=== PATIENT | female | born 1945 | race Caucasian/White ===

== ENCOUNTER 2022-11-23 14:57 | Emergency (ER) | payer MEDICARE ==
[2022-11-23 15:05] VITALS: TEMP 97.6
[2022-11-23] MEDS ORDERED: ONDANSETRON 4 MG/2 ML VIAL IVP STA (15:51)
[2022-11-23 16:26] LABS: Anisocytosis Slight; Basophils % (A) 0 %; Eosinophils # (A) 0.1 k/uL (0-0.7); Eosinophils % (A) 1 %; HCT 21.4 % (34.0-46.0); Lymphocytes # (A) 0.5 k/uL (1.0-4.8); Lymphocytes % (A) 8 %; MCH 30.6 pg (25.0-35.0); MCHC 32.9 g/dL (31.0-37.0); MCV 93.2 fL (80.0-100.0); Mean Platelet Volume 10.1; Monocytes # (A) 0.5 k/uL (0-1.0); Monocytes % (A) 9 %; Neutrophils # (A) 4.6 k/uL (1.3-7.7); Neutrophils % (A) 79 %; Platelet Count 151 k/uL (150-450); RDW 16.4 % (11.5-15.5); WBC 5.9 k/uL (3.8-10.6)
--- NOTE | 2022-11-23 16:37 | ED ---
General Adult HPI - General Chief complaint: Weakness Stated complaint: Weakness Time Seen by Provider: 11/23/22 15:13 Source: patient, family Mode of arrival: wheelchair Limitations: altered mental status, physical limitation - History of Present Illness Initial comments: 77-year-old female with past medical history of nonalcoholic liver cirrhosis, chronic anemia who presents to the emergency department with report of confusion, weakness and hematemesis. The patient's son is at bedside. They report that the patient just returned home from [facility] [place]. She was hospitalized there after a stay at [facility]. She came home last Thursday. Has been doing well up until today when she became confused and weak. She has recurrent hyperammonemia however she has been taking her rifaximin and lactulose without any missed doses. They deny any falls. She did have a bowel movement just prior to coming to the hospital. They deny any weight gain. No increase in abdominal girth. Last paracentesis was on November 13. They deny fevers. The patient is not complaining of any chest pain or shortness of breath. She did have an episode of vomiting bright red blood just prior to coming into the hospital. They approximate that it was around 30 mL of blood. No history of similar that they know of. GI doctor is Dr. Garcia. No other alleviating, precipitating or modifying factors - Related Data Home Medications Medication Instructions Recorded Confirmed Docusate [Colace] 100 mg PO BID 11/23/22 11/23/22 Ferrous Sulfate [Feosol] 325 mg PO DAILY 11/23/22 11/23/22 Furosemide [Lasix] 40 mg PO DAILY 11/23/22 11/23/22 Lactulose 20 gm PO TID 11/23/22 11/23/22 Melatonin 6 mg PO HS 11/23/22 11/23/22 Multivitamins, Thera [Multivitamin 1 tab PO DAILY 11/23/22 11/23/22 (formulary)] Omeprazole [PriLOSEC] 40 mg PO BID 11/23/22 11/23/22 Propranolol [Inderal] 10 mg PO TID 11/23/22 11/23/22 Rifaximin [Xifaxan] 550 mg PO BID 11/23/22 11/23/22 Sodium Bicarbonate Tab 650 mg PO BID 11/23/22 11/23/22 Spironolactone [Aldactone] 50 mg PO BID 11/23/22 11/23/22 traMADol HCL 50 mg PO Q12H 11/23/22 11/23/22 Allergies Allergy/AdvReac Type Severity Reaction Status Date / Time No Known Allergies Allergy Verified 11/23/22 15:05 Review of Systems ROS Statement: Those systems with pertinent positive or pertinent negative responses have been documented in the HPI. ROS Other: All systems not noted in ROS Statement are negative. Past Medical History Past Medical History: Hypertension, Liver Disease, Renal Disease Additional Past Medical History / Comment(s): chrosis of liver, anemia, metabolic encephalopathy, esophageal varices without bleeding History of Any Multi-Drug Resistant Organisms: None Reported Past Surgical History: No Surgical Hx Reported Past Psychological History: No Psychological Hx Reported Smoking Status: Never smoker Past Alcohol Use History: None Reported Past Drug Use History: None Reported General Exam Limitations: altered mental status, physical limitation General appearance: alert, in no apparent distress Head exam: Present: atraumatic, normocephalic, normal inspection Eye exam: Present: normal appearance, PERRL, EOMI. Absent: scleral icterus, conjunctival injection, periorbital swelling ENT exam: Present: normal exam, mucous membranes moist Respiratory exam: Present: normal lung sounds bilaterally. Absent: respiratory distress, wheezes, rales, rhonchi, stridor Cardiovascular Exam: Present: regular rate, normal rhythm, normal heart sounds. Absent: systolic murmur, diastolic murmur, rubs, gallop, clicks GI/Abdominal exam: Present: distended. Absent: guarding Extremities exam: Present: normal inspection, full ROM, normal capillary refill. Absent: tenderness, pedal edema, joint swelling, calf tenderness Neurological exam: Present: alert Psychiatric exam: Present: flat affect Skin exam: Present: warm, dry, intact, normal color. Absent: rash Course Vital Signs 11/23/22 11/23/22 11/23/22 14:58 16:13 16:30 Temperature 97.6 F Pulse Rate 74 72 70 Respiratory 18 17 17 Rate Blood Pressure 121/61 117/60 111/55 O2 Sat by Pulse 100 100 100 Oximetry 11/23/22 11/23/22 11/23/22 17:00 17:33 19:37 Temperature Pulse Rate 69 70 82 Respiratory 16 17 16 Rate Blood Pressure 100/55 107/92 107/56 O2 Sat by Pulse 100 99 99 Oximetry - Reevaluation(s) Reevaluation #1: Calling [facility] for transfer 11/23/22 17:20 Reevaluation #2: Speaking with [facility] - Dr. Garcia does accept transfer 11/23/22 18:14 Dr. Zeus VILLANUEVA doc accepts transfer 11/23/22 18:17 EKG Findings - EKG Comments: EKG Findings:: EKG demonstrates a sinus rhythm with a rate of 73. GA interval 156. QRS 85. QTC of 418. No acute processes elevations or depressions Medical Decision Making - Medical Decision Making Was pt. sent in by a medical professional or institution (, PA, TIN CAN LABORER, urgent care, hospital, or fci...) When possible be specific @ -No Did you speak to anyone other than the patient for history (EMS, parent, family, police, friend...)? What history was obtained from this source @ -Daughter Did you review nursing and triage notes (agree or disagree)? Why? @ -I reviewed and agree with nursing and triage notes Were old charts reviewed (outside hosp., previous admission, EMS record, old EKG, old radiological studies, urgent care reports/EKG's, fci records)? Report findings @ -No old charts were reviewed Differential Diagnosis (chest pain, altered mental status, abdominal pain women, abdominal pain men, vaginal bleeding, weakness, fever, dyspnea, syncope, headache, dizziness, GI bleed, back pain, seizure, CVA, palpatations, mental he alth, musculoskeletal)? @ -Differential GI Bleed: Esophageal varices, aortoenteric fistula, Yvette-Ríos, gastritis, peptic ulcer disease, diverticulosis, inflammatory bowel disease, hemorrhoids, fissure, colitis, malignancy, Meckels diverticulum, this is not meant to be an all- inclusive list. EKG interpreted by me (3pts min.). @ -As above X-rays interpreted by me (1pt min.). @ -None done CT interpreted by me (1pt min.). @ -None done U/S interpreted by me (1pt. min.). @ -None done What testing was considered but not performed or refused? (CT, X-rays, U/S, labs)? Why? @ -Abdominal CT was considered however the patient does not have any pain What meds were considered but not given or refused? Why? @ -None Did you discuss the management of the patient with other professionals (professionals i.e. , PA, TIN CAN LABORER, lab, RT, psych nurse, pediatric social worker, help desk coordinator, teacher, motorcycle police officer, case specialist)? Give summary @ -Yes - Dr. Garcia at [facility] Was smoking cessation discussed for >3mins.? @ -No Was critical care preformed (if so, how long)? @ -45 minutes Were there social determinants of health that impacted care today? How? (Homelessness, low income, unemployed, alcoholism, drug addiction, transportation, low edu. Level, literacy, decrease access to med. care, long-term, rehab)? @ -No Was there de-escalation of care discussed even if they declined (Discuss DNR or withdrawal of care, Hospice)? DNR status @ -No What co-morbidities impacted this encounter? (DM, HTN, Smoking, COPD, CAD, Cancer, CVA, ARF, Chemo, Hep., AIDS, mental health diagnosis, sleep apnea, morbid obesity)? @ -VARGAS, Esophageal varices, ascites, anemia Was patient admitted / discharged? Hospital course, mention meds given and route, prescriptions, significant lab abnormalities, going to OR and other pertinent info. @ -Upon arrival the patient was placed in room 10. A thorough history and physical exam was performed. Patient's had IV established. She was given 4 mg of Zofran for her nausea. Laboratory studies are conducted and reviewed. She does have a stable blood pressure at this time. Laboratory studies reveal hemoglobin of 7. Sodium 126. Potassium 5.2. Creatinine 1.6. Ammonia is 60. Patient was given 1 g of Rocephin, 50 g of octreotide and started on 50 g per hour. She is also given 80 mg of Protonix. Patient is typed and screened. Due to her hemoglobin is 7 with active bleeding I did order a units of packed red blood cells. Patient is not on any anticoagulation. She does require lactulose however I would prefer to give rectal lactulose due to current upper GI bleed concerns. Patient needs to be transferred outside facility as we do not have GI on staff. Lactulose will be held until patient is at receiving facility. I called and spoke with the patient's GI doctor, Dr. Garcia. He was agreeable to have the patient transferred to their facility. I spoke with the ER doc, Dr. Schulz who also accepts transfer. COBRA forms were signed and the patient is awaiting transport in stable condition Undiagnosed new problem with uncertain prognosis? @ -No Drug Therapy requiring intensive monitoring for toxicity (Heparin, Nitro, Insulin, Cardizem)? @ -Yes, blood products Were any procedures done? @ -No Diagnosis/symptom? @ -Acute upper GI bleed, esophageal varices, nonalcoholic steohepatitis Acute, or Chronic, or Acute on Chronic? @ -acute on chronic Uncomplicated (without systemic symptoms) or Complicated (systemic symptoms)? @ -complicated Side effects of treatment? @ -allergic reaction Exacerbation, Progression, or Severe Exacerbation? @ -yes Poses a threat to life or bodily function? How? (Chest pain, USA, AR, pneumonia, PE, COPD, DKA, ARF, appy, cholecystitis, CVA, Diverticulitis, Homicidal, Suicidal, threat to staff... and all critical care pts) @ -yes - Lab Data Result diagrams: 11/23/22 15:59 11/23/22 15:59 Lab Results 11/23/22 11/23/22 11/23/22 Range/Units 15:55 15:59 15:59 WBC 5.9 (3.8-10.6) k/uL RBC 2.30 L (3.80-5.40) m/uL Hgb 7.0 L (11.4-16.0) gm/dL Hct 21.4 L (34.0-46.0) % MCV 93.2 (80.0-100.0) fL MCH 30.6 (25.0-35.0) pg MCHC 32.9 (31.0-37.0) g/dL RDW 16.4 H (11.5-15.5) % Plt Count 151 (150-450) k/uL MPV 10.1 Neutrophils % 79 % Lymphocytes % 8 % Monocytes % 9 % Eosinophils % 1 % Basophils % 0 % Neutrophils # 4.6 (1.3-7.7) k/uL Lymphocytes # 0.5 L (1.0-4.8) k/uL Monocytes # 0.5 (0-1.0) k/uL Eosinophils # 0.1 (0-0.7) k/uL Basophils # 0.0 (0-0.2) k/uL Anisocytosis Slight PT 10.6 (9.0-12.0) sec INR 1.0 (<1.2) APTT 19.0 L (22.0-30.0) sec Sodium (137-145) mmol/L Potassium (3.5-5.1) mmol/L Chloride (98-107) mmol/L Carbon Dioxide (22-30) mmol/L Anion Gap mmol/L BUN (7-17) mg/dL Creatinine (0.52-1.04) mg/dL Est GFR (CKD-EPI)AfAm (>60 ml/min/1.73 sqM) Est GFR (CKD-EPI)NonAf (>60 ml/min/1.73 sqM) Glucose (74-99) mg/dL Plasma Lactic Acid Freddy (0.7-2.0) mmol/L Calcium (8.4-10.2) mg/dL Magnesium (1.6-2.3) mg/dL Total Bilirubin (0.2-1.3) mg/dL AST (14-36) U/L ALT (4-34) U/L Alkaline Phosphatase (38-126) U/L Ammonia (<30) umol/L Total Protein (6.3-8.2) g/dL Albumin (3.5-5.0) g/dL Blood Type Blood Type Confirm A Positive Blood Type Recheck Bld Type Recheck Status Antibody Screen Antibody Identification Direct Antiglob Test Crossmatch Spec Expiration Date 11/23/22 11/23/22 11/23/22 Range/Units 15:59 15:59 15:59 WBC (3.8-10.6) k/uL RBC (3.80-5.40) m/uL Hgb (11.4-16.0) gm/dL Hct (34.0-46.0) % MCV (80.0-100.0) fL MCH (25.0-35.0) pg MCHC (31.0-37.0) g/dL RDW (11.5-15.5) % Plt Count (150-450) k/uL MPV Neutrophils % % Lymphocytes % % Monocytes % % Eosinophils % % Basophils % % Neutrophils # (1.3-7.7) k/uL Lymphocytes # (1.0-4.8) k/uL Monocytes # (0-1.0) k/uL Eosinophils # (0-0.7) k/uL Basophils # (0-0.2) k/uL Anisocytosis PT (9.0-12.0) sec INR (<1.2) APTT (22.0-30.0) sec Sodium 126 L (137-145) mmol/L Potassium 5.2 H (3.5-5.1) mmol/L Chloride 95 L (98-107) mmol/L Carbon Dioxide 22 (22-30) mmol/L Anion Gap 9 mmol/L BUN 73 H (7-17) mg/dL Creatinine 1.67 H (0.52-1.04) mg/dL Est GFR (CKD-EPI)AfAm 34 (>60 ml/min/1.73 sqM) Est GFR (CKD-EPI)NonAf 30 (>60 ml/min/1.73 sqM) Glucose 219 H (74-99) mg/dL Plasma Lactic Acid Freddy 1.8 (0.7-2.0) mmol/L Calcium 8.4 (8.4-10.2) mg/dL Magnesium 2.9 H (1.6-2.3) mg/dL Total Bilirubin 0.7 (0.2-1.3) mg/dL AST 56 H (14-36) U/L ALT 52 H (4-34) U/L Alkaline Phosphatase 176 H (38-126) U/L Ammonia 60 H (<30) umol/L Total Protein 5.9 L (6.3-8.2) g/dL Albumin 2.8 L (3.5-5.0) g/dL Blood Type A Positive Blood Type Confirm Blood Type Recheck No Previous Record Bld Type Recheck Status CABO Indicated Antibody Screen POSITIVE Antibody Identification Anti-K Direct Antiglob Test Negative Crossmatch See Detail Spec Expiration Date 11/26/2022 - 2358 Disposition Clinical Impression: Upper GI bleed, Esophageal varices, VARGAS (nonalcoholic steatohepatitis) Disposition: OTHER INSTITUTION NOT DEFINED Condition: Serious Is patient prescribed a controlled substance at d/c from ED?: No Referrals: Camilo Soto MD [Primary Care Provider] - 1-2 days Time of Disposition: 18:17 - Out of Hospital Transfer - Req. Specs Out of Hospital Transfer - Requested Specifics: Other Emergency Center ([facility])
[2022-11-23 16:38] LABS: Lactic Acid, Venous 1.8 mmol/L (0.7-2.0); Potassium 5.2 mmol/L (3.5-5.1)
[2022-11-23 16:39] LABS: Albumin 2.8 g/dL (3.5-5.0); Calcium 8.4 mg/dL (8.4-10.2); Magnesium 2.9 mg/dL (1.6-2.3); Total Bilirubin 0.7 mg/dL (0.2-1.3); Total Protein 5.9 g/dL (6.3-8.2)
[2022-11-23 16:44] LABS: Prothrombin Time 10.6 sec (9.0-12.0)
[2022-11-23] MEDS ORDERED: cefTRIAXone IN SWFI 1,000 MG/10 ML SYRINGE IVP STA (17:02)
[2022-11-23] MEDS ORDERED: PANTOPRAZOLE 40 MG/10 ML VIAL IVP STA (17:02)
[2022-11-23] MEDS ORDERED: OCTREOTIDE 500 MCG in SODIUM CHLORIDE 0.9% 250 ML IV STA (17:05)
[2022-11-23] MEDS ORDERED: OCTREOTIDE 100 MCG/ML INJ IVP STA (17:05)
[2022-11-23 19:39] VITALS: BP 107/56; PULSE 82; RESP 16
== END 2022-11-23 20:33 | disposition other institution (70) ==
LOC: EC 14:57
DX: K92.2 Gastrointestinal hemorrhage, unspecified (principal); I85.00 Esophageal varices without bleeding; K75.81 Nonalcoholic steatohepatitis (NASH); I10 Essential (primary) hypertension; Z79.899 Other long term (current) drug therapy
CPT/HCPCS: 36415; 93005; 86900; 86901; 86902; 80053; 82140; 83605; 83735; 85025; 85610; 85730; 86850; 86920; 86870; 86880; 99291; 96365; 96366 ×2; 96375 ×4; J2405; J2354 ×2; J0696; C9113